=== PATIENT | male | born 2000 | race Caucasian/White ===

== ENCOUNTER 2023-02-12 01:00 | Emergency (ER) | payer SELFPAY ==
[~2023-02-12] VITALS: Ht 160 cm; Wt 74.8 kg
[2023-02-12 01:09] VITALS: BP 125/83; PULSE 99; RESP 18; TEMP 97.4; O2SAT 99
== END 2023-02-12 02:15 | disposition left against medical advice (07) ==
LOC: MED 01:00 → EDBD 01:00 → MED 02:15
DX: F10.129 Alcohol abuse with intoxication, unspecified (principal); Y90.9 Presence of alcohol in blood, level not specified
CPT/HCPCS: 99283